=== PATIENT | male | born 1965 | race Caucasian/White ===

== ENCOUNTER 2016-06-19 15:59 | Emergency (ER) | payer OTHER ==
[2016-06-19] MEDS ORDERED: ASPIRIN PO STA (16:03)
--- NOTE | 2016-06-19 16:18 | EKG Report ---
Test Performed on : 06/19/2016 4:05:25 PM Test Reason : Chest Pain Blood Pressure : / mmHG Vent. Rate : 088 BPM Atrial Rate : 088 BPM P-R Int : 152 ms QRS Dur : 098 ms QT Int : 368 ms P-R-T Axes : 060 -31 033 degrees QTc Int : 445 ms Normal sinus rhythm. Left axis deviation Abnormal ECG When compared with ECG of 22-JAN-2016 13:48, No significant change was found Unconfirmed Result
[2016-06-19 16:29] LABS: MANUAL DIFF NEEDED? NO
[2016-06-19 16:32] LABS: BASO% 0.2 % (0.0-0.8); EOS# 0.19 X1000 (0.0-0.7); HEMATOCRIT 42.4 % (42.0-52.0); HEMOGLOBIN 15.1 g/dL (14.0-18.0); LYMPH# 3.21 X1000 (1.2-3.4); LYMPH% 34.6 % (20.5-51.1); MCH 32.8 PG (27-31); MCHC 35.6 g/dL (33-37); MCV 92.2 FL (81-99); MONO# 0.71 X1000 (0.11-0.59); MONO% 7.7 % (1.7-9.3); MPV 10.4 FL (7.4-10.4); NEUT% 55.5 % (42.2-75.2); PLT 168 X1000 (130-400)
[2016-06-19 16:46] LABS: INR 0.98; PROTIME 10.4 Seconds (9.2-11.7); PTT 24.7 Seconds (22.0-36.0)
[2016-06-19 17:01] LABS: AGAP 12; ALBUMIN 4.4 g/dL (3.5-5.0); ALKALINE PHOSPHATASE 82 U/L (32-122); BUN 16 mg/dL (8-22); CALCIUM 9.7 mg/dL (8.8-10.2); CHLORIDE 103 mmol/L (98-107); COSMO 287; GOT 18 U/L (10-34); GPT 25 U/L (10-44); MAGNESIUM 1.9 mg/dL (1.5-2.7); POTASSIUM 4.2 mmol/L (3.5-5.1); SODIUM 138 mmol/L (136-145); TCO2 23 mmol/L (25-35)
[2016-06-19] MEDS ORDERED: CLARITIN PO ONE (17:32)
[2016-06-19] MEDS ORDERED: DUONEB (A & A) INH ONE (17:32)
[2016-06-19 17:33] LABS: CK PROFILE 238 U/L (24-204)
--- NOTE | 2016-06-19 17:34 | PROVIDER DOCUMENTATION ---
HPI-Chest Pain - General Source: patient - History of Present Illness-CP Location: reports: central Chest Pain Radiation: reports: no radiation Quality of Pain: reports: sharp Severity in ED: mild, moderate Onset/Duration: abrupt, last night Timing: gone now Context/Activities at Onset: reports: none Modifying Factors: worse with: coughing Associated Symptoms: reports: fever/chills. denies: diaphoresis, dizziness, nausea, shortness of breath, vomiting Nitro Today/Relief: no nitro taken today Aspirin Treatment Today: 325 mg x 1, provided by ED Prior Chest Pain/Cardiac Workup: reports: other (previous stents) Similar Symptoms Previously?: Yes Recently Seen Here or By Another Healthcare Provider: No <Kiel Joseph - Last Filed: 06/19/16 17:47> <Dax Ty - Last Filed: 06/19/16 19:01> - General Chief Complaint: Chest Pain Stated Complaint: cp Time Seen by Provider: 06/19/16 17:16 Allergies/Adverse Reactions: Patient Allergies Allergy/AdvReac Type Severity Reaction Status Date / Time ketorolac tromethamine * AdvReac NAUSEA/VOMI Verified 06/19/16 17:26 [From Toradol] TING Home Medications: Aspirin EC 81 mg PO DAILY 01/02/16 Atorvastatin Calcium [Lipitor] 40 mg PO HS 01/02/16 Clopidogrel Bisulfate [Plavix] 75 mg PO HS 01/02/16 Lisinopril 10 mg PO QA 01/02/16 Metoprolol [Lopressor] 25 mg PO HS 01/02/16 Methocarbamol [Robaxin] 500 mg PO HS 01/22/16 - History of Present Illness-CP Nature of Presenting Problem: Patient is a 50 y/o M that presents with chest pain that began last pm after having a coughing episode in which he has cough and congestion x 6 days with chills. Denies n/v/d, shortness of breath, or back pain. He had bronchitis in 2015. (Kiel Joseph) Review of Systems - Adult - REVIEW OF SYSTEMS - ADULT Constitutional: reports: chills. denies: fever Eyes: denies: decreased vision, blurred vision, double vision Ears, Nose, Mouth & Throat: reports: sinus problem (runny nose). denies: ear pain, throat pain, throat swelling Cardiovascular: reports: chest pain. denies: palpitations, syncope Respiratory: reports: cough. denies: dyspnea on exertion, shortness of breath Gastrointestinal: reports: no symptoms reported Genitourinary: reports: no symptoms reported Musculoskeletal: reports: no symptoms reported Integumentary: reports: no symptoms reported Neurological: reports: no symptoms reported Psychiatric: reports: no symptoms reported Endocrine: reports: no symptoms reported Hematologic/Lymphatic: reports: no symptoms reported Allergic/Immunologic: reports: no symptoms reported All Other Systems: Reviewed and Negative <Kiel Joseph - Last Filed: 06/19/16 17:47> Past History - Adult - PAST MEDICAL HISTORY-ADULT Review of Records: reports: Old Records Reviewed, Nursing Assessment Review, Medications Reviewed Cardiovascular: reports: CAD, HTN, OR Respiratory: reports: sleep apnea Endocrine/Immune: reports: Diabetes Diabetes Type: Type 2 - PRIOR SURGERIES/PROCEDURES Surgical/Procedure History: reports: cardiac stent, back/neck (lumbar fusion) - IMMUNIZATION STATUS Childhood Immunizations: See Nurse Assessment Flu Vaccine: See Nurse Assessment - FAMILY HISTORY Family History: reviewed, not pertinent - SOCIAL HISTORY Smoking: cigarettes, less than 1 pack/day Alcohol Use Frequency: occasionally Living Situation: family <Kiel Joseph - Last Filed: 06/19/16 17:47> Physical Exam-General - PHYSICAL EXAM-ADULT Initial Vital Signs Reviewed: Yes - CONSTITUTIONAL General Appearance: alert, no apparent distress - EYES Eyes: PERRL/EOMI, pink conjunctivae - HEAD, EARS, NOSE, MOUTH & THROAT HENMT: normocephalic/atraumatic, moist mucous membranes, normal ENT inspection - NECK Neck: full range of motion, normal inspection - RESPIRATORY Respiratory: lungs clear, normal breath sounds, no pleuratic chest pain, no respiratory distress, no accessory muscle use - CARDIOVASCULAR Cardiovascular: regular rate, rhythm, no gallop, no murmur - GASTROINTESTINAL (ABDOMEN) Abdominal Exam: normal bowel sounds, non tender, soft, no organomegaly, no pulsatile mass - MUSCULOSKELETAL Back Exam: normal inspection, no CVA tenderness, no vertebral tenderness Extremity: normal range of motion, non-tender, normal inspection, no pedal edema , normal capillary refill, pelvis stable - SKIN Integumentary: normal color, warm/dry - NEUROLOGIC Neurologic: grossly normal, no motor/sensory deficits - PSYCHIATRIC Psych/Mental Status: normal mood/affect, normal thought content, normal thought process, oriented x 3 <Kiel Joseph - Last Filed: 06/19/16 17:47> Progress - CHANGE OF SHIFT REPORT (ED Provider) Report Given and Care Transferred to:: Makeda Ty PA-C Time of Transfer: 17:47 Items Pending: Labs, XRAY Results <Kiel Joseph - Last Filed: 06/19/16 17:47> <Dax Ty - Last Filed: 06/19/16 19:01> - PLAN OF CARE/RESULTS Progress/Plan/Lab Results: Patient reports having steroid injections for his back, which could be why he is having elevated glucose and weight gain (Kiel Joseph) Sign out from Dr. Singer. Pt began having MSK CP last night after multiple coughing episodes. Pt is feeling well. Will d/c home. Laboratory Tests 06/19/16 06/19/16 06/19/16 16:14 16:14 16:14 WBC 9.27 RBC 4.60 L Hgb 15.1 Hct 42.4 MCV 92.2 MCH 32.8 H MCHC 35.6 RDW Std Deviation 12.9 Plt Count 168 MPV 10.4 Immature Gran % (Auto) 0.0 Neut % (Auto) 55.5 Lymph % (Auto) 34.6 [place] % (Auto) 7.7 Eos % (Auto) 2.0 Baso % (Auto) 0.2 Immature Gran # (Auto) 0.00 Neut # (Auto) 5.14 Lymph # (Auto) 3.21 [place] # (Auto) 0.71 H Eos # (Auto) 0.19 Baso # (Auto) 0.02 PT INR PTT (Actin FS) D-Dimer Sodium 138 Potassium 4.2 Chloride 103 Carbon Dioxide 23 L Anion Gap 12 BUN 16 Creatinine 0.9 Estimated GFR/1.73 m2 > 60 BUN/Creatinine Ratio 18 Glucose 286 H Calculated Osmolality 287 Calcium 9.7 Magnesium 1.9 Total Bilirubin 0.40 AST 18 ALT 25 Alkaline Phosphatase 82 Creatine Kinase 238 H Creatine Kinase Index 1.2 CK-MB (CK-2) 2.87 Troponin T Prc-K-Xptplgzxvsg Pept 21 Total Protein 7.0 Albumin 4.4 Globulin 2.6 Albumin/Globulin Ratio 1.7 06/19/16 06/19/16 06/19/16 16:14 16:14 16:14 WBC RBC Hgb Hct MCV MCH MCHC RDW Std Deviation Plt Count MPV Immature Gran % (Auto) Neut % (Auto) Lymph % (Auto) [place] % (Auto) Eos % (Auto) Baso % (Auto) Immature Gran # (Auto) Neut # (Auto) Lymph # (Auto) [place] # (Auto) Eos # (Auto) Baso # (Auto) PT 10.4 INR 0.98 PTT (Actin FS) 24.7 D-Dimer < 0.22 L Sodium Potassium Chloride Carbon Dioxide Anion Gap BUN Creatinine Estimated GFR/1.73 m2 BUN/Creatinine Ratio Glucose Calculated Osmolality Calcium Magnesium Total Bilirubin AST ALT Alkaline Phosphatase Creatine Kinase Creatine Kinase Index CK-MB (CK-2) Troponin T < 0.010 Nry-[id number]-Jcxuvjtjvdm Pept Total Protein Albumin Globulin Albumin/Globulin Ratio Orders Category Date Time Status CHEST-2 VIEWS [RAD] Stat Exams 06/19/16 16:03 Draft CBC WITH ELECTRONIC DIFF [HEME] Stat Lab 06/19/16 16:14 Completed CK PROFILE [SP CHEM] Stat Lab 06/19/16 16:14 Completed COMPREHENSIVE METABOLIC PANEL [CHEM] Stat Lab 06/19/16 16:14 [address] D-D[address]ER [address] [COAG] Routine Lab 06/19/16 16:14 Completed MAGNESIUM [CHEM] Stat Lab 06/19/16 16:14 Completed PRO B-NATRIURETIC PEPTIDE Stat Lab 06/19/16 16:14 Completed PROTIME WITH INR [COAG] Stat Lab 06/19/16 16:14 Completed PTT [COAG] Stat Lab 06/19/16 16:14 Completed TROPONIN T Stat Lab 06/19/16 16:14 Completed Albuterol 2.5MG/Ipratrop 0.5MG [Duoneb (A & A)] Med 06/19/16 17:32 Discontinued 3 ml INH NOW ONE Aspirin Med 06/19/16 16:03 Discontinued 325 mg PO STAT STA Loratadine [Claritin] Med 06/19/16 17:32 Discontinued 10 mg PO NOW ONE Aerosol Treatments Routine Oth 06/19/16 17:32 Completed Aerosol Treatments Stat Oth 06/19/16 17:32 Completed EKG [EKG] Stat Ther 06/19/16 16:03 Draft Vital Signs Temp Pulse Resp BP Pulse Ox 06/19/16 17:55 88 18 93 L 06/19/16 16:06 98.7 F 88 18 157/100 93 L ketorolac tromethamine * [From Toradol] Adverse Reaction (Verified 06/19/16 17: 26) NAUSEA/VOMITING Aspirin EC 81 mg PO DAILY 01/02/16 Atorvastatin Calcium [Lipitor] 40 mg PO HS 01/02/16 Clopidogrel Bisulfate [Plavix] 75 mg PO HS 01/02/16 Lisinopril 10 mg PO QA 01/02/16 Metoprolol [Lopressor] 25 mg PO HS 01/02/16 Methocarbamol [Robaxin] 500 mg PO HS 01/22/16 Hydrocodone/Acetaminophen [[place] 5-325 Tablet] 1 each PO PRN PRN #30 tablet Laboratory 06/19/16 06/19/16 06/19/16 16:14 16:14 16:14 WBC RBC Hgb Hct MCV MCH MCHC RDW Std Deviation Plt Count MPV Immature Gran % (Auto) Neut % (Auto) Lymph % (Auto) [place] % (Auto) Eos % (Auto) Baso % (Auto) Immature Gran # (Auto) Neut # (Auto) Lymph # (Auto) [place] # (Auto) Eos # (Auto) Baso # (Auto) PT 10.4 INR 0.98 PTT (Actin FS) 24.7 D-Dimer < 0.22 L Sodium Potassium Chloride Carbon Dioxide Anion Gap BUN Creatinine Estimated GFR/1.73 m2 BUN/Creatinine Ratio Glucose Calculated Osmolality Calcium Magnesium Total Bilirubin AST ALT Alkaline Phosphatase Creatine Kinase Creatine Kinase Index CK-MB (CK-2) Troponin T < 0.010 Azh-O-Metdgiwcdgt Pept Total Protein Albumin Globulin Albumin/Globulin Ratio 06/19/16 06/19/16 06/19/16 16:14 16:14 16:14 WBC 9.27 RBC 4.60 L Hgb 15.1 Hct 42.4 MCV 92.2 MCH 32.8 H MCHC 35.6 RDW Std Deviation 12.9 Plt Count 168 MPV 10.4 Immature Gran % (Auto) 0.0 Neut % (Auto) 55.5 Lymph % (Auto) 34.6 [place] % (Auto) 7.7 Eos % (Auto) 2.0 Baso % (Auto) 0.2 Immature Gran # (Auto) 0.00 Neut # (Auto) 5.14 Lymph # (Auto) 3.21 [place] # (Auto) 0.71 H Eos # (Auto) 0.19 Baso # (Auto) 0.02 PT INR PTT (Actin FS) D-Dimer Sodium 138 Potassium 4.2 Chloride 103 Carbon Dioxide 23 L Anion Gap 12 BUN 16 Creatinine 0.9 Estimated GFR/1.73 m2 > 60 BUN/Creatinine Ratio 18 Glucose 286 H Calculated Osmolality 287 Calcium 9.7 Magnesium 1.9 Total Bilirubin 0.40 AST 18 ALT 25 Alkaline Phosphatase 82 Creatine Kinase 238 H Creatine Kinase Index 1.2 CK-MB (CK-2) 2.87 Troponin T Qeh-R-Jdgroyqlkdv Pept 21 Total Protein 7.0 Albumin 4.4 Globulin 2.6 Albumin/Globulin Ratio 1.7 (Dax Ty) Departure <Kiel Joseph - Last Filed: 06/19/16 17:47> - Departure Time of Disposition Order: 18:59 Certified Medical Emergency: Emergent <Dax Ty - Last Filed: 06/19/16 19:01> - Departure DIAGNOSIS: Acute URI Disposition: HOME 01 Condition: Good Additional Instructions: Take medication as prescribed. Follow up with your primary care provider. ED Follow Up Instructions: You have been treated by a care provider in the Emergency Department. These instructions are being provided to you so you can have an understanding of how to care for yourself upon discharge. Upon discharge from the Emergency Department, you are responsible for making arrangements for follow-up care by a physician of your choice. Take all prescribed medications as directed. Return to the Emergency Department immediately for any new or worsening symptoms. You may call the Physician Referral phone number at [phone] to obtain a list of Physicians who are taking new patients. Prescriptions: Albuterol Sulfate [Albuterol Sulfate Hfa] 8.5 gm IH Q4-6H PRN PRN #1 [id number] PRN Reason: Wheezing Guaifenesin/D-Methorphan Hb/PE [Deconex Dmx Tablet] 1 each PO TID #30 tablet Montelukast Chew [Singulair] 5 mg PO DAILY #30 tablet Attestation - Scribe Verification/Attestation Scribe:: Kiel Joseph Acting as Scribe for:: Marciano Singer Scribe documention review:: This chart was documented by a scribe and accurately reflects the service the provider performed and the decisions made by the provider. <Kiel Joseph - Last Filed: 06/19/16 17:47> - Physician/ Mid-level Attestation Patient care was provided by Mid-level provider (OVERNIGHT CAREGIVER/PA):: Yes Mid-level provider:: Dax Ty Mid-level documentation review:: The Mid-level provider documentation, treatment plan and medical decision making was reviewed by the physician who agrees with all treatment and medical decision making by the P. <Dax Ty - Last Filed: 06/19/16 19:01> Physician Attestation - Physician Attestation I, the provider, attest to the following statement:: Marciano Singer Physician documentation Attestation:: This documentation recorded by the scribe accurately reflects the service I personally performed and the decisions made by me. <Kiel Joseph - Last Filed: 06/19/16 17:47>
[2016-06-19 18:00] LABS: CK INDEX 1.2 (0.0-2.5); CK-MB 2.87 ng/mL (0.0-5.0)
--- NOTE | 2016-06-19 18:13 | Diag Imaging Result Document ---
PROCEDURE NAME: CHEST-2 VIEWS - 06/19/2016 CHEST 2 VIEWS: COMPARISON: Compared with 10/30/2011. FINDINGS: Heart size is normal. There is slight prominence of central markings which appears to be chronic. There is no consolidation, pleural effusion, or pneumothorax identified. There is progressive spondylosis noted at the mid thoracic spine. IMPRESSION: No evidence of acute disease. There is progressive spondylosis noted at the mid thoracic spine.
[2016-06-19 19:25] VITALS: BP 139/89
== END 2016-06-19 19:39 | disposition home or self-care (01) ==
LOC: ED 15:59
DX: J06.9 Acute upper respiratory infection, unspecified (principal); R07.89 Other chest pain; R05 Cough; R09.81 Nasal congestion; R68.83 Chills (without fever); I25.10 Atherosclerotic heart disease of native coronary artery without angina pectoris; I10 Essential (primary) hypertension; I25.2 Old myocardial infarction; Z79.899 Other long term (current) drug therapy; E11.9 Type 2 diabetes mellitus without complications; F17.210 Nicotine dependence, cigarettes, uncomplicated; Z79.02 Long term (current) use of antithrombotics/antiplatelets; Z79.82 Long term (current) use of aspirin; Z95.5 Presence of coronary angioplasty implant and graft; Z98.1 Arthrodesis status
CPT/HCPCS: 71020; 80053; 82550; 82553; 83735; 83880; 84484; 85025; 85379; 85610; 85730; 93005; 94640; 94761; 99283